=== PATIENT | female | born 1945 | race Caucasian/White ===

== ENCOUNTER → 2016-06-13 | Outpatient (CLI) | payer MEDICARE, MEDICAID | END | disposition home or self-care (01) | LOC: YCHH 09:26 | DX: E11.9 Type 2 diabetes mellitus without complications (principal); I25.10 Atherosclerotic heart disease of native coronary artery without angina pectoris; I12.9 Hypertensive chronic kidney disease with stage 1 through stage 4 chronic kidney disease, or unspecified chronic kidney disease; N18.9 Chronic kidney disease, unspecified; I50.9 Heart failure, unspecified ==

== ENCOUNTER → 2016-08-05 | Outpatient (CLI) | payer MEDICARE, MEDICAID ==
--- NOTE | 2016-08-05 11:42 | MAM ---
EXAM DESCRIPTION: Screening Mammogram,Bilateral CLINICAL HISTORY: 71 years, Female, Screening mammogram COMPARISON: July 31, 2015 TECHNIQUE: CC and MLO digital mammograms with computer aided detection. FINDINGS: There are scattered fibroglandular densities. There is no dominant mass nor any suspicious microcalcifications. Benign microcalcifications are present. IMPRESSION: BI-RADS 2: BENIGN FOLLOW-UP: Routine mammography screening. Electronically signed by: Manny Owusu MD 08/05/2016 11:41 AM CDT
== END | disposition home or self-care (01) ==
LOC: MAMMO 07:45
PROVIDERS: ATTEND Nurse Practitioner Family
DX: Z12.31 Encounter for screening mammogram for malignant neoplasm of breast (principal)

== ENCOUNTER → 2016-09-11 | Outpatient (CLI) | payer MEDICARE, MEDICAID | END | disposition home or self-care (01) | LOC: YCHH 09:16 | DX: E11.9 Type 2 diabetes mellitus without complications (principal) ==

== ENCOUNTER → 2016-12-12 | Outpatient (CLI) | payer MEDICARE, MEDICAID ==
--- NOTE | 2016-12-13 06:00 | RAD ---
Procedure: XR CHEST 2 VIEWS Exam date: 12/12/2016 9:36 AM CDT Ordering Provider: Marycarmen Phoenix Clinical Indication: CONGESTIVE HEART FAILURE Comparison: 08/12/2014 Findings: Mild cardiomegaly. Stable post CABG changes. Mild central vascular congestion. No pleural effusion or pneumothorax. Osseous structures are nonacute. No evidence of active tuberculosis. Impression: Cardiomegaly with central vascular congestion. No overt failure. Otherwise, nonacute two-view chest. Electronically signed by: Ming Schultz MD 12/13/2016 5:58 AM CDT
== END | disposition home or self-care (01) ==
LOC: LAB.O 09:17
PROVIDERS: ATTEND Nurse Practitioner Family
DX: I50.9 Heart failure, unspecified (principal); E11.9 Type 2 diabetes mellitus without complications; R35.0 Frequency of micturition

== ENCOUNTER → 2016-12-16 | Outpatient (CLI) | payer MEDICARE, MEDICAID | END | disposition home or self-care (01) | LOC: YCFC.O 10:04 | PROVIDERS: ATTEND Nurse Practitioner Family | DX: I50.9 Heart failure, unspecified (principal) ==

== ENCOUNTER 2016-12-18 08:28 | Emergency (ER) | payer MEDICARE, MEDICAID ==
[2016-12-18 08:39] VITALS: TEMP 98.4
--- NOTE | 2016-12-18 08:46 | ED.PDOC ---
History of Present Illness - General Chief Complaint: Respiratory Problem Stated Complaint: Increasing difficulty breathing Time Seen by Provider: 12/18/16 08:36 Source: patient Exam Limitations: no limitations - History of Present Illness Initial Comments: Pau Hernandez 71 y/o female stated that for the last 2 weeks she had been having SOB and exertional dyspnea which she feels getting worse .She was taking actos for a month but was stopped last week by her primary md.Has dry cough occassionally but no wheezing. Timing/Duration: getting worse, other Severity: moderate - 2 weeks Activities at Onset: activity Possible Cause: no prior episodes Improving Factors: nothing Worsening Factors: nothing Respiratory Risk Factors: no cause identified Allergies/Adverse Reactions: Allergies NO KNOWN ALLERGY Allergy (Verified 12/18/16 08:38) Home Medications: Ambulatory Orders Furosemide Tab [Lasix Tab] 20 mg PO DAILY #30 tab 08/12/14 Clopidogrel Bisulfate [Plavix] 75 mg PO DAILY 12/18/16 Insulin Glargine [Lantus Solostar] 40 unit SC DAILY 12/18/16 Lisinopril 20 mg PO BID 12/18/16 Metoprolol Tartrate 100 mg PO BID 12/18/16 Pravastatin Sodium 40 mg PO BEDTIME 12/18/16 Review of Systems - Review of Systems Constitutional: States: no symptoms reported EENTM: States: no symptoms reported Respiratory: States: see HPI, orthopnea, short of breath Cardiology: States: see HPI Gastrointestinal/Abdominal: States: no symptoms reported Genitourinary: States: no symptoms reported Musculoskeletal: States: no symptoms reported Skin: States: no symptoms reported Neurological: States: no symptoms reported Past Medical History (General) - Patient Medical History Hx Stroke: No Hx Cardiac Disorders: Yes Hx Congestive Heart Failure: Yes - new dx 11/2016 Hx Hypertension: Yes Hx Diabetes: Yes Surgical History: appendectomy, coronary bypass surgery, other - hysterectomy - Vaccination History Hx Tetanus, Diphtheria Vaccination: Yes Hx Influenza Vaccination: Yes - 2016 Hx Pneumococcal Vaccination: Yes - Social History Hx Tobacco Use: No Hx Alcohol Use: No Hx Physical Abuse: No Hx Emotional Abuse: No Hx Suspected Abuse: No - Activities of Daily Living Grooming Ability: Independent Eating (Feeding) Ability: Independent Toileting Ability: Independent - Female History Patient : No Family Medical History - Family History Mother Family History: No Known Living Status: Hx Cardiac Disease: Yes - multiple family members Hx Family Diabetes: Yes - multiple family members Physical Exam - Physical Exam General Appearance: Alert, No apparent distress Eyes, Ears, Nose, Throat Exam: PERRL/EOMI, normal ENT inspection, pharynx normal Neck: full range of motion, supple, normal inspection Respiratory: chest non-tender, lungs clear, normal breath sounds, no respiratory distress Cardiovascular/Chest: normal peripheral pulses, regular rate, rhythm, no gallop , no JVD, no murmur Peripheral Pulses: radial,right: 1+, radial,left: 1+ Gastrointestinal/Abdominal: normal bowel sounds, non tender, soft, no organomegaly Extremity: normal inspection, no calf tenderness, pedal edema - +1 Neurologic: oriented x 3 Progress - Progress Progress: 12/18/16 09:28 Vital Signs - 8 hr 12/18/16 08:33 Temperature 98.4 F Pulse Rate [ 69 Left Radial] Respiratory 32 H Rate Blood Pressure 159/84 [Left Arm] O2 Sat by Pulse 97 Oximetry - Results/Orders Results/Orders: Laboratory Tests 12/18/16 12/18/16 12/18/16 08:45 08:47 08:47 WBC 9.9 RBC 4.03 L Hgb 11.8 L Hct 36.5 MCV 90.6 MCH 29.2 MCHC 32.3 L RDW 14.2 Plt Count 265 MPV 9.2 Absolute Neuts (auto) 7.50 H Absolute Lymphs (auto) 1.40 Absolute Monos (auto) 0.70 Absolute Eos (auto) 0.20 Absolute Basos (auto) 0.10 Neutrophils % 75.6 Lymphocytes % 14.5 L Monocytes % 7.3 Eosinophils % 2.0 Basophils % 0.6 D-Dimer, Quantitative 531 H* Sodium Potassium Chloride Carbon Dioxide Anion Gap BUN Creatinine BUN/Creatinine Ratio Random Glucose Serum Osmolality Calcium Total Bilirubin AST ALT Alkaline Phosphatase Troponin I 0.02 B-Natriuretic Peptide Serum Total Protein Albumin Globulin Albumin/Globulin Ratio TSH 12/18/16 08:47 WBC RBC Hgb Hct MCV MCH MCHC RDW Plt Count MPV Absolute Neuts (auto) Absolute Lymphs (auto) Absolute Monos (auto) Absolute Eos (auto) Absolute Basos (auto) Neutrophils % Lymphocytes % Monocytes % Eosinophils % Basophils % D-Dimer, Quantitative Sodium 141 Potassium 5.1 H Chloride 109 Carbon Dioxide 25 Anion Gap 12.1 BUN 42 H Creatinine 2.16 H BUN/Creatinine Ratio 19.4 Random Glucose 110 H D Serum Osmolality 292.4 Calcium 8.6 Total Bilirubin 0.4 AST 100 H ALT 96 H Alkaline Phosphatase 96 Troponin I B-Natriuretic Peptide 915.0 H* Serum Total Protein 7.3 Albumin 3.4 Globulin 3.9 H Albumin/Globulin Ratio 0.9 L TSH 2.28 - EKG/XRAY/CT EKG: Sinus Comments: heart rate 69 XRAY: chest - cardiomegaly with increase interstitial markings lung base Departure - Departure Clinical Impression: Congestive heart failure (CHF) Qualifiers: Congestive heart failure type: combined Congestive heart failure chronicity: acute on chronic Qualified Code(s): I50.43 - Acute on chronic combined systolic (congestive) and diastolic (congestive) heart failure Time of Disposition: 12:38 Disposition: Discharge to Home or Self Care Condition: Fair Departure Forms: ED Discharge - Pt. Copy, Patient Portal Self Enrollment Instructions: Congestive Heart Failure (Alternative Therapy), DI for Heart Failure, How to Justin With Heart Failure, How to Keep Track of Your Weight When You Have Heart Failure Referrals: Marycarmen Phoenix NP [Primary Care Provider] - 1-2 Weeks Home Medications: Ambulatory Orders Furosemide Tab [Lasix Tab] 20 mg PO DAILY #30 tab 08/12/14 Clopidogrel Bisulfate [Plavix] 75 mg PO DAILY 12/18/16 Insulin Glargine [Lantus Solostar] 40 unit SC DAILY 12/18/16 Lisinopril 20 mg PO BID 12/18/16 Metoprolol Tartrate 100 mg PO BID 12/18/16 Pravastatin Sodium 40 mg PO BEDTIME 12/18/16 Additional Instructions: Increase Lasix 20 mg-Take 2 pills in am and one pill at bedtime for 5 DAYS and resume previous dose afterwards;RETURN TO EMERGENCY ROOM NEEDED FOLLOW UP WITH PRIMARY MD IN AM CALL FOR APPOINTMENT;Decrease dose of metoprolol 50 mg po am/pm
[2016-12-18] MEDS ORDERED: BUMETANIDE 0.25 MG/ML VIAL IV ONE (08:52)
--- NOTE | 2016-12-18 09:22 | RAD ---
EXAM DESCRIPTION: XR CHEST 2 VIEWS CLINICAL HISTORY: Shortness of breath COMPARISON: 12/12/2016 TECHNIQUE: PA/lateral FINDINGS: Mild cardiomegaly. Pulmonary vascular congestion. Increased interstitial markings in the lower lobes suggesting interstitial edema. The upper lobes are clear. Small amount of pleural fluid blunting the costophrenic angles No pneumothorax. No acute bony abnormality IMPRESSION: Cardiomegaly and interstitial edema consistent with congestive heart failure. Minimal effusions Electronically signed by: Kaden Phipps MD 12/18/2016 9:21 AM CDT
[2016-12-18 13:44] VITALS: BP 151/47; O2SAT 99
== END 2016-12-18 13:13 | disposition home or self-care (01) ==
LOC: ER 08:28
DX: I11.0 Hypertensive heart disease with heart failure (principal); I50.43 Acute on chronic combined systolic (congestive) and diastolic (congestive) heart failure; E11.9 Type 2 diabetes mellitus without complications; Z79.4 Long term (current) use of insulin; Z95.1 Presence of aortocoronary bypass graft
CPT/HCPCS: 71020; 80053; 83880; 84443; 84484; 85025; 85379; 93005; J3490

== ENCOUNTER → 2016-12-27 | Outpatient (CLI) | payer MEDICARE, MEDICAID ==
--- NOTE | 2016-12-27 11:56 | US ---
EXAM DESCRIPTION: Renal:-Ultrasound CLINICAL HISTORY: CHRONIC KIDNEY DISEASE COMPARISON: Bilateral renal arterial Doppler evaluation on the same visit. TECHNIQUE: Transcutaneous scanning: Two-dimensional and Doppler modes. FINDINGS: Right kidney measures 9.9 x 5.2 x 4.8 cm; mid-renal cortical thickness 9 mm. . Echogenicity increased compared to the liver. No hydronephrosis No calcifications. Slightly lobulated contour of the kidney with no perinephric fluid. Normal vascularity. Proximal ureter not visualized. Left kidney measures 9.9 x 4.8 x 5.2 cm; mid-renal cortical thickness 1.2 mm.. Increased echogenicity. No hydronephrosis. No calcifications. Lobulated contour of the kidney with no perinephric fluid. 1.5 x 1.3 cm cyst in the mid kidney. Normal vascularity.. Proximal ureter not visualized. Urinary bladder not visualized. IMPRESSION: Bilateral kidneys showing increased echogenicity greater than the liver with lobulated contour, consistent with chronic disease. Bilateral cortical thinning. No hydronephrosis. Left renal cortical cyst. No Perinephric fluid. Electronically signed by: Santi Gonsalves MD 12/27/2016 11:54 AM CDT
== END | disposition home or self-care (01) ==
LOC: US 08:30
PROVIDERS: ATTEND Internal Medicine Nephrology
DX: N18.4 Chronic kidney disease, stage 4 (severe) (principal)

== ENCOUNTER → 2016-12-30 | Outpatient (CLI) | payer MEDICARE, MEDICAID | END | disposition home or self-care (01) | LOC: LAB.O 07:50 | PROVIDERS: ATTEND Internal Medicine Nephrology | DX: N18.4 Chronic kidney disease, stage 4 (severe) (principal) ==

== ENCOUNTER 2017-01-22 00:55 | Inpatient (IN) | payer MEDICARE, MEDICAID ==
[2017-01-22] MEDS ORDERED: FUROSEMIDE INJ 40 MG/4 ML VIAL IV ONE (01:19)
--- NOTE | 2017-01-22 01:22 | ED.PDOC ---
History of Present Illness - General Chief Complaint: Respiratory Problem Stated Complaint: shortness of breath Time Seen by Provider: 01/22/17 01:09 Source: patient, RN notes reviewed, Vital Signs reviewed Exam Limitations: no limitations - History of Present Illness Initial Comments: Patient come to the ER with c/o SOB that started earlier tonight. She thinks it is her CHF. She has been out of her Lasix for the past 4 days and has noticed a 10# weight gain. No chest pain. Fells same as episode she had ~ 1 month ago when she was seen here. She reports after that she was in the hospital @ [email or web address] for 3 days. Timing/Duration: 7-24 hours Severity: moderate Activities at Onset: sleep Possible Cause: occasional episodes Improving Factors: nothing Worsening Factors: movement - & talking Associated Symptoms: denies symptoms Respiratory Risk Factors: other - Hx of CHF, not taking her Lasix Allergies/Adverse Reactions: Allergies NO KNOWN ALLERGY Allergy (Verified 12/18/16 08:38) Home Medications: Ambulatory Orders Furosemide Tab [Lasix Tab] 20 mg PO DAILY #30 tab 08/12/14 Clopidogrel Bisulfate [Plavix] 75 mg PO DAILY 12/18/16 Insulin Glargine [Lantus Solostar] 40 unit SC DAILY 12/18/16 Lisinopril 20 mg PO BID 12/18/16 Metoprolol Tartrate 100 mg PO BID 12/18/16 Pravastatin Sodium 40 mg PO BEDTIME 12/18/16 Review of Systems - Review of Systems Constitutional: States: no symptoms reported. Denies: chills, fever, malaise Respiratory: States: see HPI, short of breath Cardiology: States: see HPI, edema. Denies: chest pain, palpitations Gastrointestinal/Abdominal: States: no symptoms reported Musculoskeletal: States: no symptoms reported Skin: States: no symptoms reported Neurological: States: no symptoms reported All other Systems: No Change from Baseline Past Medical History (General) - Patient Medical History Hx Stroke: No Hx Cardiac Disorders: Yes Hx Congestive Heart Failure: Yes Hx Hypertension: Yes Hx Diabetes: Yes Surgical History: appendectomy, coronary bypass surgery, Hysterectomy - Vaccination History Hx Tetanus, Diphtheria Vaccination: Yes Hx Influenza Vaccination: Yes Hx Pneumococcal Vaccination: Yes - Social History Hx Tobacco Use: No Hx Alcohol Use: No Hx Physical Abuse: No Hx Emotional Abuse: No Hx Suspected Abuse: No - Female History Patient : No Family Medical History - Family History Mother Family History: No Known Living Status: Hx Cardiac Disease: Yes - multiple family members Hx Family Diabetes: Yes - multiple family members Physical Exam - Physical Exam General Appearance: Alert, Obvious distress - obviously SOB on 2-4 word sentences, Well Developed, Well Groomed, Well Hydrated, Well Nourished Neck: supple, normal inspection Respiratory: chest non-tender, decreased breath sounds, accessory muscle use, crackles Cardiovascular/Chest: normal peripheral pulses, regular rate, rhythm, no gallop , no murmur Peripheral Pulses: dorsalis pedis,right: 2+, dorsalis pedis,left: 2+ Gastrointestinal/Abdominal: normal bowel sounds, soft, no organomegaly, no pulsatile mass, tenderness - mold diffuse tenderness Extremity: non-tender, pedal edema Neurologic: alert, normal mood/affect, oriented x 3 Skin Exam: normal color, warm/dry Comments: Vital Signs 01/22/17 01/22/17 01:07 01:10 Temperature 99.8 F H Pulse Rate [ 78 Apical] Respiratory 28 H 28 H Rate Blood Pressure 160/94 [Left Arm] O2 Sat by Pulse 97 Oximetry Progress - Progress Progress: 01/22/17 02:07 Lasix 40mg IV given 01/22/17 02:[address] Morgan. Will admit to hospital. - Results/Orders Results/Orders: Laboratory Tests 01/22/17 01/22/17 01/22/17 01:30 01:30 01:30 WBC 11.8 H RBC 3.87 L Hgb 11.5 L Hct 34.7 L MCV 89.5 MCH 29.7 MCHC 33.3 RDW 14.5 Plt Count 175 MPV 9.8 Absolute Neuts (auto) 9.00 H Absolute Lymphs (auto) 1.70 Absolute Monos (auto) 0.80 Absolute Eos (auto) 0.20 Absolute Basos (auto) 0.10 Neutrophils % 76.1 Lymphocytes % 14.2 L Monocytes % 7.0 Eosinophils % 2.0 Basophils % 0.7 D-Dimer, Quantitative 387 H* Sodium 138 Potassium 4.6 Chloride 110 Carbon Dioxide 25 Anion Gap 7.6 L BUN 40 H Creatinine 2.12 H BUN/Creatinine Ratio 18.9 Random Glucose 73 Serum Osmolality 284.0 Calcium 9.0 Total Bilirubin 0.6 AST 66 H ALT 73 H Alkaline Phosphatase 106 Creatine Kinase 41 CK-MB (CK-2) 0.9 CK-MB (CK-2) % Not Reportable Troponin I 0.02 B-Natriuretic Peptide 1620.0 H* Serum Total Protein 7.0 Albumin 3.7 Globulin 3.3 Albumin/Globulin Ratio 1.1 - EKG/XRAY/CT EKG: Sinus, nonspecific ST T wave Chg, Unchanged from - 12/18/16 XRAY: chest - CHF &/or volume overload per Radiologist Departure - Departure Clinical Impression: Congestive heart failure Qualifiers: Congestive heart failure type: combined Congestive heart failure chronicity: acute on chronic Qualified Code(s): I50.43 - Acute on chronic combined systolic (congestive) and diastolic (congestive) heart failure Time of Disposition: 02:11 Disposition: Admit Patient Condition: Poor Departure Forms: ED Discharge - Pt. Copy, Patient Portal Self Enrollment Referrals: Marycarmen Phoenix NP [Primary Care Provider] - 1-2 Weeks Home Medications: Ambulatory Orders Furosemide Tab [Lasix Tab] 20 mg PO DAILY #30 tab 08/12/14 Clopidogrel Bisulfate [Plavix] 75 mg PO DAILY 12/18/16 Insulin Glargine [Lantus Solostar] 40 unit SC DAILY 12/18/16 Lisinopril 20 mg PO BID 12/18/16 Metoprolol Tartrate 100 mg PO BID 12/18/16 Pravastatin Sodium 40 mg PO BEDTIME 12/18/16 Decision To Admit - Decistion To Admit Decision to Admit Reason: Admit from ER Decision to Admit Date: 01/22/17 Decision to Admit Time: 02:09
--- NOTE | 2017-01-22 01:44 | RAD ---
Procedure: XR CHEST 1 VIEW Exam Date: 01/22/2017 Ordering Provider: Gregoria Cifuentes Clinical Indication: SOB/ Hx of CHF Comparison: 12/18/2016 Findings: Residuals of thoracic surgery. Cardiac silhouette: Magnified by technique Pulmonary vasculature : Prominence of the central pulmonary vasculature and bibasilar interstitium. Mediastinal contour: Normal Aortic contour: Aortic calcification Focal lung consolidation: No focal lung consolidation. Pleural effusion: No large pleural effusions. Pneumothorax: None Acute bony or soft tissue abnormality: None Impression: 1. CHF and/or volume overload. Electronically signed by: James Tong MD 01/22/2017 1:43 AM CDT
--- NOTE | 2017-01-22 02:27 | HP ---
SUPERVISING PHYSICIAN: Kaden Sauceda M.D. CHIEF COMPLAINT: I couldn't breathe. HISTORY OF PRESENT ILLNESS: This is a 71 year-old female patient who was brought to the Emergency Room by her . She has a significant history of congestive heart failure. She found that she had started getting bloated several days ago and her weight had gone up. She sees Dr. Stephens, flute polisher , but she has been out of her Lasix for 5 to 6 days. She reports that she was in the hospital in [place] at some point in the last few weeks for this same thing. In the Emergency Room, she was given some Lasix and her labs were done. She had a white count of 11.8 and hemoglobin 11.5, hematocrit 34.7. D- dimer was 387. Sodium 138, potassium 4.6, chloride 110, carbon dioxide 25, BUN 40, creatinine 2.12. Magnesium 1.7, AST 66, ALT 73, alkaline phosphatase 106, BNP 1,620. Urinalysis was basically within normal limits. Chest x-ray per radiology interpretation showed congestive heart failure and/or volume overload. She was admitted to the hospital early this morning. PAST MEDICAL HISTORY: 1. Type 2 diabetes mellitus. 2. Hyperlipidemia. 3. Hypertension. 4. Coronary artery disease. 5. Congestive heart failure of unknown etiology. 6. Chronic kidney disease stage IV. 7. History of recent urinary tract infection. PAST SURGICAL HISTORY: 1. Hysterectomy. 2. Coronary artery bypass graft. 3. Appendectomy. OUTPATIENT MEDICATIONS: Per the EMR and awaiting verification. ALLERGIES: NO KNOWN DRUG ALLERGIES. CODE STATUS: FULL CODE. FAMILY HISTORY: Mother of a myocardial infarction. Father of a myocardial infarction. SOCIAL HISTORY: She is retired. She is . She has 4 children. She has never smoked tobacco. She drinks alcohol on a social basis only. She drinks caffeine daily. REVIEW OF SYSTEMS: GENERAL: Denies fever or fatigue. Positive for weight gain of unknown amount. HEENT: Negative for sinus symptoms, ear pain, vision changes or sore throat. RESPIRATORY: Negative for coughing or wheezing. Positive for shortness of breath. CARDIAC: Negative for chest pain, palpitations or tachycardia. GASTROINTESTINAL: Negative for nausea, vomiting, diarrhea or constipation. Positive for generalized bloating and abdominal distention. EXTREMITIES: Denies edema. SKIN: Denies lesions or rashes. NEUROLOGIC: Denies headache, dizziness or seizures. PHYSICAL EXAMINATION: VITAL SIGNS: She is afebrile, heart rate 61, blood pressure 90/50, respiratory rate 16, O2 sat is 96% on room air. GENERAL: This is a 71 year-old female who is lying in her hospital bed. HEENT: Normocephalic and atraumatic. Pupils are equal and reactive. Oropharynx is clear. NECK: Supple without mass. It is difficult to discern if there is any jugular venous distention at this time. RESPIRATORY: Scattered crackles throughout, somewhat diminished at the bases. CARDIOVASCULAR: Regular rate and rhythm. ABDOMEN: Soft. It is rounded. It is non-tender. Bowel sounds are positive. EXTREMITIES: No cyanosis or clubbing. There is a trace of pedal edema bilaterally. NEUROLOGIC: She is awake, alert and oriented times three. SKIN: Warm and dry. LABORATORY: Labs and films are as per the history of present illness. All other labs and films have been reviewed via the EMR. ASSESSMENT: 1. Acute exacerbation of congestive heart failure of unknown etiology. She is presently on a beta alie as well as an Patrice inhibitor. She is also prescribed a diuretic. 2. Diabetes mellitus type 2. 3. Hypertension. 4. Hyperlipidemia. 5. Chronic kidney disease stage IV. 6. Coronary artery disease. PLAN: The patient has been admitted to the hospital. She has received IV Lasix in the Emergency Room and we have also given her IV Lasix twice a day here on the floor. We are monitoring her electrolytes closely. We will also give her some magnesium. We will try to get an echo report on her tomorrow to find out her exact etiology of her congestive heart failure. I started her on Accu-Cheks with sliding scale insulin. She has been placed on a cardiac specialist. Hopefully she can be discharged in the next 2 to 3 days. Will continue to monitor her closely and followup as needed. Dr. Sauceda is the collaborating physician available for consultation. #[id number] [facility]
[2017-01-22] MEDS ORDERED: SODIUM CHLORIDE 0.9% (FLUSH) 10 ML SYG IV PRN (02:31)
[2017-01-22] MEDS ORDERED: NITROGLYCERIN 0.4 MG 25 EA TAB SL PRN (02:31)
[2017-01-22] MEDS ORDERED: ACETAMINOPHEN 325 MG TAB PO PRN (02:31)
[2017-01-22] MEDS ORDERED: MAGNESIUM HYDROXIDE 30 ML UD PO PRN (02:31)
[2017-01-22] MEDS ORDERED: LEVALBUTEROL NEBS 1.25 MG/3 ML VIAL NEB PRN (02:31)
[2017-01-22] MEDS ORDERED: DEXTROSE 50% 25 GM/50 ML SYG IV PRN (02:43)
[2017-01-22] MEDS ORDERED: GLUCAGON INJ 1 MG VIAL SUBCU PRN (02:43)
--- NOTE | 2017-01-22 02:51 | PCM.CORE ---
Physician DVT/VTE - 5 or more Very High Risk Treatments: Sequential Compression Device Pharmacological: Enoxaparin 40mg SQ Daily
[2017-01-22] MEDS ORDERED: IV SET AND CAP CHANGE INJ INJ SCH (03:00)
[2017-01-22] MEDS: SODIUM CHLORIDE 0.9% (FLUSH) 10 ML SYG IV SCH ×3 (03:32→20:55)
[2017-01-22] MEDS: INSULIN LISPRO 100 UNITS/ML PEN SUBCU SCH ×4 (07:54→21:01)
[2017-01-22] MEDS: LEVALBUTEROL NEBS 1.25 MG/3 ML VIAL NEB SCH ×3 (08:20→23:48)
[2017-01-22] MEDS: INSULIN DETEMIR 100 UNITS/ML PEN SUBCU SCH (08:59)
[2017-01-22] MEDS ORDERED: METOPROLOL TARTRATE 50 MG TAB PO SCH (09:00)
[2017-01-22] MEDS: FUROSEMIDE INJ 20 MG/2 ML VIAL IV SCH ×2 (09:02→16:54)
[2017-01-22] MEDS: LISINOPRIL 10 MG TAB PO SCH ×2 (09:03→20:53)
[2017-01-22] MEDS: CLOPIDOGREL 75 MG TAB PO SCH (09:03)
[2017-01-22] MEDS: ENOXAPARIN SODIUM 40 MG/0.4 ML SYG SUBCU SCH (09:04)
[2017-01-22] MEDS: METOPROLOL TARTRATE 50 MG TAB PO SCH ×2 (09:40→16:54)
[2017-01-22] MEDS: PANTOPRAZOLE SODIUM IV 40 MG VIAL IV SCH (13:32)
[2017-01-22] MEDS ORDERED: MAGNESIUM SULFATE PREMIX 2GM 2 GM in PREMIX BAG 1 BAG IVPB ONE (19:24)
[2017-01-22] MEDS ORDERED: MAGNESIUM SULFATE PREMIX 2GM 50 ML IVPB ONE (19:47)
[2017-01-23] MEDS: PANTOPRAZOLE SODIUM IV 40 MG VIAL IV SCH (06:04)
--- NOTE | 2017-01-23 06:57 | RAD ---
Clinical History : CHF , MAIN Exam : PA and lateral views of the chest 01/23/2017 7:00 AM CDT Comparisons : Portable AP view of the chest January 22, 2017 Findings : The lungs are clear without focal consolidation or pleural effusion. The heart is normal in size. The mediastinal contours are normal in appearance. The patient is status post sternotomy and CABG. There are vascular calcifications along the aortic arch. The thoracic spine is age appropriate. The shoulders are unremarkable. Limited evaluation of the upper abdomen demonstrates no gross abnormalities. Impression: No acute cardiopulmonary disease Electronically signed by: Hoa Rodriguez MD 01/23/2017 6:56 AM CDT
[2017-01-23] MEDS: INSULIN LISPRO 100 UNITS/ML PEN SUBCU SCH ×4 (08:29→21:14)
[2017-01-23] MEDS: CLOPIDOGREL 75 MG TAB PO SCH (08:30)
[2017-01-23] MEDS: METOPROLOL TARTRATE 50 MG TAB PO SCH ×2 (08:30→17:12)
[2017-01-23] MEDS: LISINOPRIL 10 MG TAB PO SCH ×2 (08:30→20:05)
[2017-01-23] MEDS: ENOXAPARIN SODIUM 40 MG/0.4 ML SYG SUBCU SCH (08:31)
[2017-01-23] MEDS: FUROSEMIDE INJ 20 MG/2 ML VIAL IV SCH ×2 (08:31→17:12)
[2017-01-23] MEDS: INSULIN DETEMIR 100 UNITS/ML PEN SUBCU SCH (08:32)
[2017-01-23] MEDS: SODIUM CHLORIDE 0.9% (FLUSH) 10 ML SYG IV SCH ×2 (08:40→20:04)
[2017-01-23] MEDS: LEVALBUTEROL NEBS 1.25 MG/3 ML VIAL NEB SCH ×3 (09:08→23:45)
--- NOTE | 2017-01-23 16:29 | PN ---
DATE: 01/23/17 SUPERVISING PHYSICIAN: Kaden Sauceda M.D. SUBJECTIVE: The patient is sitting up in her hospital bed. She reports that she is feeling much better. She has much less shortness of breath, although she does get short of breath with some exertion. Otherwise no complaints of chest pain, nausea, vomiting or diarrhea. OBJECTIVE: VITAL SIGNS: Temperature 98.1, pulse rate 68, blood pressure 128/81 , respiratory rate 18, O2 sat is 94% on room air. RESPIRATORY: Essentially clear to auscultation bilaterally. She is somewhat diminished at the bases. CARDIAC: Regular rate and rhythm. ABDOMEN: Soft, rounded, nondistended. Bowel sounds are positive. EXTREMITIES: No cyanosis, clubbing or edema. NEUROLOGIC: She is awake, alert and oriented times three. LABORATORY: WBCs have improved to 7.1 with hemoglobin 11.9, hematocrit 35.7. Sodium 136, potassium 4.3, chloride 102, carbon dioxide 25, BUN 48, creatinine 2.37. Blood sugars have run between 86 and 285. Hemoglobin A1c is 7.8. Cardiac enzymes are negative. Liver enzymes are also within normal limits. RADIOLOGY: Chest x-ray shows no acute cardiopulmonary processes. All other labs and films have been reviewed via the EMR. ASSESSMENT: 1. Acute exacerbation of congestive heart failure of unknown etiology. She is presently on a beta alie as well as an Patrice inhibitor. She is also on a prescribed diuretic. 2. Diabetes mellitus type 2. 3. Hypertension. 4. Hyperlipidemia. 5. Chronic kidney disease stage IV. 6. Coronary artery disease. 7. Mild hypomagnesemia. PLAN: We will continue present supportive care. I have switched her IV Lasix to p.o. Lasix for tomorrow. I will also recheck her electrolytes as well as her magnesium in the morning. Her creatinine is slightly worsened today. Her baseline creatinine is approximately 2.1 to 2.2, so she is not far from baseline , but it is slightly worsened since yesterday. If that does not improve overnight, we may need to call her clinical services professional, Dr. Sanders in [place] for any recommendations. I will also order physical therapy tomorrow as well as an ambulation study. Hopefully she can be discharged home with close followup. I have given her extensive congestive heart failure education to reinforce her need to not run out of her medications, to take them as prescribed. She will need close followup with Marycarmen Phoenix. We will continue to monitor her closely and followup as needed. Dr. Sauceda is the collaborating physician and available for consultation. #[id number] [facility]
[2017-01-23] MEDS ORDERED: PRAVASTATIN SODIUM 20 MG TAB ONE (19:45)
[2017-01-23] MEDS ORDERED: PRAVASTATIN SODIUM 20 MG TAB PO SCH (21:00)
[2017-01-24] MEDS ORDERED: PANTOPRAZOLE SODIUM TAB 40 MG PO SCH (06:30)
--- NOTE | 2017-01-24 06:31 | RAD ---
Procedure: XR CHEST 2 VIEWS Exam Date: 01/24/2017 Ordering Provider: ANGELA FOWLER Clinical Indication: chf Comparison: 01/23/2017 Findings: Residuals of thoracic surgery. Cardiomediastinal silhouette is stable. Focal lung consolidation: No focal lung consolidation. No evidence of pulmonary edema. Pleural effusion: None Pneumothorax: None Acute bony or soft tissue abnormality: None Impression: 1. No acute abnormalities in the chest. Electronically signed by: James Tong MD 01/24/2017 6:29 AM CDT
[2017-01-24] MEDS ORDERED: ENOXAPARIN SODIUM 30 MG/0.3 ML SYG SUBCU ONE (07:34)
[2017-01-24] MEDS ORDERED: FUROSEMIDE 40 MG TAB ONE (07:34)
[2017-01-24] MEDS: INSULIN LISPRO 100 UNITS/ML PEN SUBCU SCH (07:36)
[2017-01-24] MEDS: METOPROLOL TARTRATE 50 MG TAB PO SCH (07:38)
[2017-01-24] MEDS: LEVALBUTEROL NEBS 1.25 MG/3 ML VIAL NEB SCH (08:01)
[2017-01-24 08:18] VITALS: BP 107/66; TEMP 98.6; O2SAT 100
[2017-01-24] MEDS: CLOPIDOGREL 75 MG TAB PO SCH (08:18)
[2017-01-24] MEDS: SODIUM CHLORIDE 0.9% (FLUSH) 10 ML SYG IV SCH (08:18)
[2017-01-24] MEDS: INSULIN DETEMIR 100 UNITS/ML PEN SUBCU SCH (08:19)
[2017-01-24] MEDS: LISINOPRIL 10 MG TAB PO SCH (08:19)
[2017-01-24] MEDS ORDERED: MAGNESIUM HYDROXIDE 30 ML UD PO ONE (08:28)
[2017-01-24] MEDS ORDERED: FUROSEMIDE 40 MG TAB PO SCH (09:00)
[2017-01-24] MEDS ORDERED: ENOXAPARIN SODIUM 30 MG/0.3 ML SYG SUBCU SCH (09:00)
--- NOTE | 2017-01-31 10:28 | DS ---
SUPERVISING PHYSICIAN: Kaden Sauceda MD DISCHARGE DIAGNOSIS: 1. Acute exacerbation of congestive heart failure of unknown etiology with no echocardiogram available for review with the patient having been on a beta alie as well as an EMILI inhibitor and started on a prescribed diuretic, secondary to failure to comply with medical treatment plan. 2. Diabetes mellitus, type 2. 3. Hypertension. 4. Hyperlipidemia. 5. Chronic kidney disease, stage IV. 6. Coronary artery disease. 7. Mild hypomagnesemia, resolved and normalized prior to discharge with transfusion of magnesium. HISTORY OF PRESENT ILLNESS: Ms. Hernandez is a 71-year-old female patient who was brought to the Emergency Room by her . She has a significant history of congestive heart failure. She had started getting bloated several days prior and had a weight gain. 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 She reports that she was in the hospital in [place] at some point in the last few weeks for this same thing. In the Emergency Room, she was given some Lasix and her labs were done. She had a white count of 11.8 and hemoglobin 11.5, hematocrit 34.7. D-dimer was 387. Magnesium 1.7, BNP 1,620. Chest x-ray per radiologic interpretation showed congestive heart failure with volume overload. She was admitted to the hospital for admission of treatment. LABORATORY: CBC on admission showed white count 11,800. Prior to discharge, it was down to 7,000. Hemoglobin and hematocrit were stable and at discharge were 11.8 and 35.3 with platelet count 160,000. Differential did initially show a left shift, but this resolved prior to discharge. Coagulation studies showed an elevated D-dimer at 387. Chemistries on admission showed normal electrolytes with BUN 40, creatinine 2.12. After aggressive diuresis with Lasix , her BUN did go up to 65, creatinine 2.76 with serum osmolality that went from 284 to 301. Electrolytes remained within normal limits. Blood sugars were fairly well controlled between 86 and 229. Liver functions were all within normal limits. Cardiac enzymes were within normal limits except for an elevated BNP of 1620. She did initial magnesium of 1.7. After replacement, magnesium went up to 2.0. MICROBIOLOGY: No specimens were submitted. RADIOLOGY: Initial x-ray in the Emergency Department prior to admission showed congestive heart failure and volume overload. Followup chest x-ray on the morning of discharge on 01/24/17 showed no acute abnormalities within the chest. She had an EKG in the Emergency Department that showed a normal sinus rhythm with a rate of 80. No ST or T wave changes were noted. HOSPITAL COURSE: Ms. Hernandez was admitted as noted above and initiated on diuretic therapy for congestive heart failure exacerbation with IV Lasix. She did show a good response to treatment with approximately 4 liters of fluid removed with diuresis prior to discharge. Initial weight was 82.1 kg. Prior to discharge, it had gone down to 80.5 kg. X-ray did show resolution of the pulmonary edema. Symptomatically, she was improved. Vital signs on discharge showed blood pressure 107/66, saturation 100% on room air, heart rate 81, afebrile. She was felt clinically well enough to be discharged to continue to outpatient treatment plan. PLAN: The patient was discharged on 01/24/17 with instructions to have close clinical followup with Dr. Stephens and Marycarmen Phoenix as scheduled. She is to resume her home medications as directed. She was to weigh daily and if she gained 3 pounds or more, she was to call her primary care provider. She was to return to the should she have any concerning symptoms. She has an appointment with Marycarmen Phoenix on 01/28/17. DISCHARGE PRESCRIPTIONS: 1. Refill of her Lasix 40 mg daily. All other medications to resume as prior to admission. DIET AT DISCHARGE: Diabetic diet with close monitoring of total daily fluids. ACTIVITY: Increase as tolerated. CONDITION AT DISCHARGE: Stable and improved. #[id number] [facility]
== END 2017-01-24 11:17 | disposition home or self-care (01) | DRG 292 ==
LOC: ER 00:55 → MS 02:27 → OBSVTOIN 02:27
PROVIDERS: ADMIT Nurse Practitioner Acute Care; ATTEND Nurse Practitioner Family
DX: I13.0 Hypertensive heart and chronic kidney disease with heart failure and stage 1 through stage 4 chronic kidney disease, or unspecified chronic kidney disease (principal); N18.4 Chronic kidney disease, stage 4 (severe); I50.9 Heart failure, unspecified; E11.22 Type 2 diabetes mellitus with diabetic chronic kidney disease; E78.5 Hyperlipidemia, unspecified; E83.42 Hypomagnesemia; I25.10 Atherosclerotic heart disease of native coronary artery without angina pectoris; Z95.1 Presence of aortocoronary bypass graft; Z87.440 Personal history of urinary (tract) infections; Z79.4 Long term (current) use of insulin; Z79.899 Other long term (current) drug therapy

== ENCOUNTER → 2017-03-12 | Outpatient (CLI) | payer MEDICARE, MEDICAID | END | disposition home or self-care (01) | LOC: LAB.O 10:27 | PROVIDERS: ATTEND Internal Medicine Nephrology | DX: N18.4 Chronic kidney disease, stage 4 (severe) (principal) ==

== ENCOUNTER → 2017-06-25 | Outpatient (CLI) | payer MEDICARE, MEDICAID | LOC: LAB.O 10:17 | PROVIDERS: ATTEND Internal Medicine Nephrology | DX: N18.4 Chronic kidney disease, stage 4 (severe) (principal) ==

== ENCOUNTER → 2017-11-05 | Outpatient (CLI) | payer MEDICARE | LOC: LAB.O 10:09 | PROVIDERS: ATTEND Internal Medicine Nephrology | DX: N18.4 Chronic kidney disease, stage 4 (severe) (principal) ==

== ENCOUNTER → 2017-12-20 | Outpatient (CLI) | payer MEDICAID, MEDICARE | LOC: LAB.O 07:24 | PROVIDERS: ATTEND Internal Medicine Nephrology | DX: N18.4 Chronic kidney disease, stage 4 (severe) (principal) ==

== ENCOUNTER 2018-03-25 23:38 | Emergency (ER) | payer MEDICARE ==
[2018-03-26 00:04] VITALS: TEMP 97.7
[2018-03-26] MEDS ORDERED: ALPRAZolam 0.25 MG TAB PO ONE (00:05)
[2018-03-26] MEDS ORDERED: ALPRAZolam 0.5 MG TAB ONE ×2 (00:15→00:17)
[2018-03-26 00:23] VITALS: BP 122/76; O2SAT 97
--- NOTE | 2018-03-26 00:27 | RAD ---
CHEST 03/26/2018 at 0000 hours. CLINICAL HISTORY: Shortness of breath. COMPARISON: 01/24/2017 TECHNIQUE: Frontal and lateral Chest. FINDINGS: Normal cardiac size. Pulmonary vascularity appears normal. Mild aortic atherosclerosis. Sternal wires and mediastinal clips are noted. Faint opacity adjacent to the right cardiac border is stable suggestive of a prominent pericardial fat pad. Lungs are clear. Lungs are hyperinflated. Pleural spaces are clear. Moderate degenerative thoracic spine changes are seen. Unremarkable soft tissues. IMPRESSION: 1. No acute chest disease. 2. Hyperinflation. Electronically signed by: Bindu Ramon DO 03/26/2018 12:26 AM [facility]
--- NOTE | 2018-03-26 01:03 | ED.PDOC ---
History of Present Illness - General Chief Complaint: Behavioral / Psych Stated Complaint: feels SOB, and weak after electricity went out Time Seen by Provider: 03/25/18 23:45 Source: patient Exam Limitations: no limitations - History of Present Illness Initial Comments: the patient is 72-year-old female presenting to the emergency room after having had an episode of shortness of breath after her electricity went out. The patient does have a history of anxiety attacks and she believes this is one as well. She does however have a history of congestive heart failure but she was not having any shortness of breath until the power went out. No chest pain. No syncope. No cough fever or runny nose. Vital signs are reassuring. Timing/Duration: 1/2 hour Severity: moderate Improving Factors: nothing Worsening Factors: nothing Associated Symptoms: shortness of breath Allergies/Adverse Reactions: Allergies NO KNOWN ALLERGY Allergy (Verified 03/26/18 00:04) Home Medications: Ambulatory Orders Clopidogrel Bisulfate [Plavix] 75 mg PO BEDTIME 12/18/16 Insulin Glargine [Lantus Solostar] 40 unit SC DAILY 12/18/16 Lisinopril 20 mg PO DAILY 12/18/16 Metoprolol Tartrate 50 mg PO BID 12/18/16 Pravastatin Sodium 40 mg PO BEDTIME 12/18/16 Furosemide Tab [Lasix Tab] 40 mg PO DAILY tab 01/24/17 Review of Systems - Review of Systems Constitutional: States: no symptoms reported EENTM: States: no symptoms reported Respiratory: States: short of breath Cardiology: States: no symptoms reported Gastrointestinal/Abdominal: States: no symptoms reported Genitourinary: States: no symptoms reported Musculoskeletal: States: no symptoms reported Skin: States: no symptoms reported Neurological: States: anxiety Endocrine: States: no symptoms reported All other Systems: No Change from Baseline Past Medical History (General) - Patient Medical History Hx Seizures: No Hx Stroke: No Hx Asthma: No Hx of COPD: No Hx Cardiac Disorders: Yes Hx Congestive Heart Failure: Yes Hx Pacemaker: No Hx Hypertension: Yes Hx Thyroid Disease: No Hx Diabetes: Yes Hx Gastroesophageal Reflux: No Hx Renal Disease: Yes Hx Cancer: No Hx of HIV: No Hx Hepatitis C: No Hx MRSA: No Surgical History: appendectomy, Hysterectomy - Vaccination History Hx Tetanus, Diphtheria Vaccination: Yes Hx Influenza Vaccination: Yes Hx Pneumococcal Vaccination: Yes - Social History Hx Tobacco Use: No Hx Alcohol Use: No Hx Substance Use: No Hx Physical Abuse: No Hx Emotional Abuse: No Hx Suspected Abuse: No - Female History Patient : No Family Medical History - Family History Mother Family History: No Known Living Status: Hx Cardiac Disease: Yes - multiple family members Hx Family Diabetes: Yes - multiple family members Physical Exam - Physical Exam General Appearance: Alert, Anxious, No apparent distress Eye Exam: bilateral normal Ears, Nose, Throat: normal ENT inspection, normal pharynx Neck: full range of motion, supple, normal inspection Respiratory: lungs clear, normal breath sounds, no respiratory distress, no accessory muscle use Cardiovascular/Chest: normal peripheral pulses, regular rate, rhythm, no edema Peripheral Pulses: radial,right: 2+, radial,left: 2+ Gastrointestinal/Abdominal: non tender - obese, soft Rectal Exam: deferred Back Exam: normal inspection Extremity: normal range of motion, non-tender, no pedal edema, normal capillary refill Neurologic: chick grader II-XII nml as tested, alert, normal mood/affect - except very anxious, oriented x 3 Skin Exam: normal color Comments: Vital Signs - 24 hr 03/25/18 03/26/18 23:40 00:22 Temperature 97.7 F Pulse Rate [ 70 68 monitor] Respiratory 16 16 Rate Blood Pressure 172/72 122/76 [Left Arm] O2 Sat by Pulse 99 97 Oximetry Progress - Progress Progress: 03/26/18 01:01 the patient is a 72-year-old female presenting to the emergency room secondary to acute onset shortness of breath after her electricity went out. T his appears to be most likely due to an anxiety attack. She has responded well to a dose of an anxiolytic. Chest x-ray is reassuring. She doesneed to keep follow-up with her primary care doctor next week. ER warnings were given. Telemetry monitoring is also reassuring. Departure - Departure Clinical Impression: Panic attack Disposition: Discharge to Home or Self Care Condition: Fair Departure Forms: ED Discharge - Pt. Copy, Patient Portal Self Enrollment Instructions: Anxiety, Adult (DC), Panic Disorder Diet: diabetic diet Activity: increase activity as tolerated Referrals: Marycarmen Phoenix NP [Primary Care Provider] - 1-2 Weeks Home Medications: Ambulatory Orders Clopidogrel Bisulfate [Plavix] 75 mg PO BEDTIME 12/18/16 Insulin Glargine [Lantus Solostar] 40 unit SC DAILY 12/18/16 Lisinopril 20 mg PO DAILY 12/18/16 Metoprolol Tartrate 50 mg PO BID 12/18/16 Pravastatin Sodium 40 mg PO BEDTIME 12/18/16 Furosemide Tab [Lasix Tab] 40 mg PO DAILY tab 01/24/17 Additional Instructions: the patient is a 72-year-old female presenting to the emergency room secondary to acute onset shortness of breath after her electricity went out. This appears to be most likely due to an anxiety attack. She has responded well to a dose of an anxiolytic. Chest x-ray is reassuring. She doesneed to keep follow-up with her primary care doctor next week. ER warnings were given. Telemetry monitoring is also reassuring.
== END 2018-03-26 05:20 | disposition home or self-care (01) ==
LOC: ER 23:38
DX: F41.0 Panic disorder [episodic paroxysmal anxiety] (principal); R06.02 Shortness of breath; I50.9 Heart failure, unspecified; I11.0 Hypertensive heart disease with heart failure; E11.9 Type 2 diabetes mellitus without complications; Z79.4 Long term (current) use of insulin; Z79.899 Other long term (current) drug therapy

== ENCOUNTER → 2019-05-11 | Outpatient (CLI) | payer MEDICARE, MEDICAID ==
--- NOTE | 2019-05-14 14:41 | MAM ---
EXAM DESCRIPTION: 3D Screening BILATERAL : Digital Mammography. CLINICAL HISTORY: 73 years Female ANNUAL SCREENING . No complaints. No personal or family history of breast cancer. Menarche age 8. Childbirth age 15. Menopause age unknown. No HRT. Lifetime risk of developing breast cancer (Tyrer-Cuzick model)(%): 3.2. COMPARISON: 2-D digital screening bilateral mammography July 2016. TECHNIQUE: Bilateral CC and MLO projection full-field images, digital tomosynthesis mammographic technique. Bilateral digital 2-D full-field MLO images. CAD available for 2-D images. FINDINGS: The breast parenchymal density pattern is: Scattered areas of fibroglandular density. No skin thickening or nipple retraction. Vascular calcifications. Solitary parenchymal calcifications. Secretory/ductal type calcifications medial and lateral anterior left breast. Skin mole marker posterior right breast. Minimally enlarging mass density anterior lateral right breast, possibly a lymph node. 8:30 middle third right breast 6 cm from the nipple. No new focal, stellate mass or density, focal asymmetry , and no suspicious microcalcifications left breast. IMPRESSION: BI-RADS CATEGORY: 0 - INCOMPLETE- Need additional imaging evaluation. FOLLOW-UP: Recall for additional imaging: Directed right breast ultrasound region of interest.. Written communication concerning the IMPRESSION and Follow-up, will be mailed to the patient and referring health care provider. Electronically signed by: Santi Gonsalves MD 05/14/2019 2:40 PM INSTRUCTIONAL AIDE
== END ==
LOC: MAMMO 09:39
PROVIDERS: ATTEND Nurse Practitioner Family
DX: Z12.31 Encounter for screening mammogram for malignant neoplasm of breast (principal)

== ENCOUNTER → 2019-06-09 | Outpatient (CLI) | payer MEDICARE, MEDICAID ==
--- NOTE | 2019-06-09 19:20 | MAM ---
EXAM DESCRIPTION: 3D Diagnostic, Right (accession [id number]), Breast,Right (accession [id number]): Ultrasound CLINICAL HISTORY: 73 yearsFemaleABN MAMMO mass density right breast. Lifetime risk of developing breast cancer (Tyrer-Cuzick model)(%): 3.2 COMPARISON: Other TECHNIQUE: Right breast LM projection full-field images, digital tomosynthesis technique. Right breast 2-D digital full-field images: LM projection. CAD available for 2-D images.. Transcutaneous scanning of the right breast utilizing tony-scale and Doppler modes. Scanning performed by the environmental services tech and Dr. Gonsalves. FINDINGS: The breast parenchymal density pattern is: Almost entirely fatty. No skin thickening or nipple retraction the mass density in question is again seen at the 9:00 position of the right breast 7 8 cm from the nipple. 2.5 cm from the lateral breast margin. No microcalcifications. Compared to the prior study, the long axis of the mass now measures 7.7 cm compared to 1.2 cm on the screening study. Ultrasound: Scanning of the 9:00-11:00 region of the right breast anterior middle third 7 8 cm from the nipple. Predominantly fatty tissues. No dominant solid mass, no distinct cyst, no parenchymal edema, no large calcifications. A calcification measuring approximately 3 mm is visualized. This coarse calcification is visible on the screening and 2 days mammogram images. IMPRESSION: Benign exam. Shrinking lymph node or cyst, seen only on mammography. BIRAD CATEGORY: 2 BENIGN FINDINGS. RECOMMENDATIONS: FOLLOW UP: Return to routine digital bilateral mammographic screening, one year interval from May 2019. Written communication explaining the IMPRESSION and follow-up, will be mailed to the patient and referring health care provider. The FINDINGS and the FOLLOW-UP plan were reviewed in person with the patient after the examination. According to the [employer], yearly mammograms are recommended starting at age 40 and continuing as long as a woman is in good health. Any breast change noted on a breast self-exam should be reported promptly to the patient's healthcare provider. Breast MRI is recommended for women with an approximately 20-25% or greater lifetime risk of breast cancer, including women with a strong family history of breast or ovarian cancer and women who have been treated for Hodgkin's disease. A negative mammographic report should not delay tissue diagnosis in patients with significant clinical history or physical findings. Extremely dense breast tissue limits the sensitivity of digital mammography. Electronically signed by: Santi Gonsalves MD 06/09/2019 7:18 PM CDT
== END ==
LOC: MAMMO 09:00
PROVIDERS: ATTEND Nurse Practitioner Family
DX: R92.8 Other abnormal and inconclusive findings on diagnostic imaging of breast (principal)
CPT/HCPCS: 76641; 77065; G0279

== ENCOUNTER 2019-09-27 10:51 | Emergency (ER) | payer MEDICARE, MEDICAID ==
--- NOTE | 2019-09-27 12:40 | RAD ---
EXAM DESCRIPTION: Chest,1 View CLINICAL HISTORY: left chest wall redness and pain FINDINGS/ IMPRESSION: Comparison 03/27/2018 Left internal jugular large bore catheter distal tip in the superior vena cava. No pneumothorax Prior cardiac surgery. Heart size within normal limits for this apical lordotic positioning. Vascular congestion. Mild perihilar peribronchial thickening which can be seen with bronchitis.. No alveolar consolidation or pleural effusion Electronically signed by: Kaden Phipps MD 09/27/2019 12:38 PM CDT
[2019-09-27] MEDS ORDERED: VANCOMYCIN HCL INJ 1,000 MG in SODIUM CHLORIDE 0.9% 250ML 250 ML IVPB ONE (13:00)
--- NOTE | 2019-09-27 13:06 | ED.PDOC ---
History of Present Illness - General Chief Complaint: General Stated Complaint: right arm pain Time Seen by Provider: 09/27/19 12:23 Source: patient, RN notes reviewed, Vital Signs reviewed Exam Limitations: no limitations - History of Present Illness Initial Comments: Patient is a 74-year-old white female who is a dialysis patient. Patient was at dialysis today and was complaining to the staff and they recommended that she come to the ED. Patient is complaining of right arm numbness which is been this way since she had surgery to make a fistula in the arm. This numbness is been ongoing for over a month. Additionally, patient has redness and swelling around the incision site. And the incision site has opened up. Patient is also complaining of pain up in her left anterior chest wall with surrounding redness. This is the site of her permacath. The redness is new and started just a few days ago. The pain in her arm is throbbing in nature. It is moderate in in tensity. It does not radiate. The pain is worse with palpation or movement. Nothing makes the pain better. Timing/Duration: 24 hours, getting worse Severity: moderate Improving Factors: nothing Worsening Factors: movement Associated Symptoms: denies symptoms Allergies/Adverse Reactions: Allergies NO KNOWN ALLERGY Allergy (Verified 03/26/18 00:04) Home Medications: Ambulatory Orders Clopidogrel Bisulfate [Plavix] 75 mg PO BEDTIME 12/18/16 Insulin Glargine [Lantus Solostar] 40 unit SC DAILY 12/18/16 Lisinopril 20 mg PO DAILY 12/18/16 Metoprolol Tartrate 50 mg PO BID 12/18/16 Pravastatin Sodium 40 mg PO BEDTIME 12/18/16 Furosemide Tab [Lasix Tab] 40 mg PO DAILY tab 01/24/17 Review of Systems - Review of Systems Constitutional: States: no symptoms reported, see HPI. Denies: chills, fever, malaise, weakness EENTM: States: no symptoms reported. Denies: eye pain, double vision Respiratory: States: no symptoms reported. Denies: cough, short of breath, wheezing Cardiology: States: no symptoms reported. Denies: chest pain, palpitations, syncope Gastrointestinal/Abdominal: States: no symptoms reported. Denies: abdominal pain, diarrhea, nausea, vomiting Genitourinary: States: no symptoms reported Musculoskeletal: States: see HPI, muscle pain, muscle stiffness. Denies: back pain Skin: States: change in color - Redness surrounding the fistula site on the right upper extremity and on the left anterior chest wall at the site of the permacath. Endocrine: States: no symptoms reported Hematologic/Lymphatic: States: no symptoms reported All other Systems: No Change from Baseline Past Medical History (General) - Patient Medical History Hx Seizures: No Hx Stroke: No Hx Asthma: No Hx of COPD: No Hx Cardiac Disorders: Yes Hx Congestive Heart Failure: Yes Hx Pacemaker: No Hx Hypertension: Yes Hx Thyroid Disease: No Hx Diabetes: Yes Hx Gastroesophageal Reflux: No Hx Renal Disease: Yes Hx Cancer: No Hx of HIV: No Hx Hepatitis C: No Hx MRSA: No - Vaccination History Hx Tetanus, Diphtheria Vaccination: Yes Hx Influenza Vaccination: Yes Hx Pneumococcal Vaccination: Yes - Social History Hx Tobacco Use: No Hx Alcohol Use: No Hx Substance Use: No Hx Physical Abuse: No Hx Emotional Abuse: No Hx Suspected Abuse: No - Female History Patient : No Family Medical History - Family History Mother Family History: No Known Living Status: Hx Cardiac Disease: Yes - multiple family members Hx Family Diabetes: Yes - multiple family members Physical Exam - Physical Exam General Appearance: Alert, Comfortable, Well Developed, Well Hydrated, Well Nourished Eye Exam: bilateral normal Ears, Nose, Throat: hearing grossly normal, normal ENT inspection, normal pharynx Neck: non-tender, full range of motion, supple, normal inspection Respiratory: lungs clear, normal breath sounds, no respiratory distress, other - Patient with complaints of tenderness to palpation of the left anterior chest wall with surrounding redness at the site of the permacath. Cardiovascular/Chest: normal peripheral pulses, regular rate, rhythm, no edema Peripheral Pulses: radial,right: 2+, radial,left: 2+ Gastrointestinal/Abdominal: normal bowel sounds, non tender, soft, no organomegaly Back Exam: normal inspection, no CVA tenderness, no vertebral tenderness Extremity: normal range of motion, swelling - Of the right upper extremity at the site of the fistula. There is dehiscence of the surgical wound at the site of the fistula. There is surrounding redness and tenderness to palpation. There is no crepitus or purulent discharge. 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 Progress - Progress Progress: Differential diagnosis: Cellulitis, abscess, infected permacath, pneumothorax among others. 09/27/19 14:19 Patient with a history of renal failure. It appears that she has got failure of her fistula with wound dehiscence and may have cellulitis surrounding her permacath on the anterior chest wall. Patient started on vancomycin IV. Plan on transfer to [place] for further evaluation. I discussed this plan of care with the patient she voices understanding and agreement. Patient is stable for transfer. Rashaad Haley M.D. #[id number] - Results/Orders Results/Orders: EXAM DESCRIPTION: Chest,1 View CLINICAL HISTORY: left chest wall redness and pain FINDINGS/ IMPRESSION: Comparison 03/27/2018 Left internal jugular large bore catheter distal tip in the superior vena cava. No pneumothorax Prior cardiac surgery. Heart size within normal limits for this apical lordotic positioning. Vascular congestion. Mild perihilar peribronchial thickening which can be seen with bronchitis.. No alveolar consolidation or pleural effusion Electronically signed by: Kaden Phipps MD 09/27/2019 12:38 EKG performed on 27 September 2019 at 1233 hrs.: Normal sinus rhythm at 81 bpm, right axis deviation, ST and T wave abnormalities inferiorly concerning for ischemia, prolonged QT at 432 ms, abnormal EKG. No comparison EKG available at this time. 09/27/19 12:30 BLOOD CULTURE Stat EKG .ONCE 09/27/19 13:00 Vancomycin HCl Inj 1,000 mg Sodium Chloride 0.9% 250Ml [NS 250ml] 250 ml IVPB ONCE Laboratory Results - last 24 hr 09/27/19 09/27/19 12:30 12:30 WBC 9.5 RBC 3.48 L Hgb 11.4 L Hct 33.6 L MCV 96.5 MCH 32.9 H MCHC 34.1 RDW 15.3 H Plt Count 180 MPV 9.5 Absolute Neuts (auto) 6.30 Absolute Lymphs (auto) 2.20 Absolute Monos (auto) 0.60 Absolute Eos (auto) 0.30 Absolute Basos (auto) 0.10 Neutrophils % 66.4 Lymphocytes % 23.1 Monocytes % 6.6 Eosinophils % 2.8 Basophils % 1.1 Sodium 133 L Potassium 4.1 Chloride 96 L Carbon Dioxide 25 Anion Gap 16.1 BUN 30 H Creatinine 3.07 H BUN/Creatinine Ratio 9.8 L Random Glucose 336 H Serum Osmolality 285.8 Calcium 8.3 L Total Bilirubin 0.5 AST 29 ALT 29 Alkaline Phosphatase 95 Serum Total Protein 6.8 Albumin 3.1 L Globulin 3.7 H Albumin/Globulin Ratio 0.8 L Vital Signs 09/27/19 12:55 Temperature 98.8 F Pulse Rate [ 83 brachial] Respiratory 16 Rate Blood Pressure 142/66 [Left Arm] O2 Sat by Pulse 97 Oximetry Departure - Departure Clinical Impression: Cellulitis Qualifiers: Site of cellulitis: extremity Site of cellulitis of extremity: upper extremity Laterality: right Qualified Code(s): L03.113 - Cellulitis of right upper limb Surgical wound dehiscence Qualifiers: Encounter type: initial encounter Qualified Code(s): T81.31XA - Disruption of external operation (surgical) wound, not elsewhere classified, initial encounter Time of Disposition: 15:17 Disposition: Transfer to Hospital Condition: Good Departure Forms: ED Discharge - Pt. Copy, Patient Portal Self Enrollment Referrals: Marycarmen Phoenix NP [Primary Care Provider] - 1-2 Weeks Home Medications: Ambulatory Orders Clopidogrel Bisulfate [Plavix] 75 mg PO BEDTIME 12/18/16 Insulin Glargine [Lantus Solostar] 40 unit SC DAILY 12/18/16 Lisinopril 20 mg PO DAILY 12/18/16 Metoprolol Tartrate 50 mg PO BID 12/18/16 Pravastatin Sodium 40 mg PO BEDTIME 12/18/16 Furosemide Tab [Lasix Tab] 40 mg PO DAILY tab 01/24/17 Transfer to Outside Facility - Transfer Information Decision to Transfer Date: 09/27/19 Decision to Transfer Time: 14:30 Reason for Transfer: required specialist not available Accepting Facility: [facility]
[2019-09-27 15:17] VITALS: BP 167/84; TEMP 98; O2SAT 94
== END 2019-09-27 15:17 | disposition short-term general hospital (02) ==
LOC: ER 10:51
DX: L03.113 Cellulitis of right upper limb (principal); T81.31XA Disruption of external operation (surgical) wound, not elsewhere classified, initial encounter; I13.2 Hypertensive heart and chronic kidney disease with heart failure and with stage 5 chronic kidney disease, or end stage renal disease; N18.6 End stage renal disease; E11.22 Type 2 diabetes mellitus with diabetic chronic kidney disease; I50.9 Heart failure, unspecified; Z99.2 Dependence on renal dialysis; Y92.9 Unspecified place or not applicable
CPT/HCPCS: 36415; 71045; 80053; 85025; 87040; 93005; J3370; J7050